=== PATIENT | female | born 1970 | race Caucasian/White ===

== ENCOUNTER 2021-02-16 06:27 | Emergency (ER) | payer SELFPAY ==
[2021-02-16 06:28] VITALS: PULSE 130; O2SAT 97; BMI 30.7
[2021-02-16 06:34] VITALS: BP 131/80; PULSE 119; RESP 20; O2SAT 97
[2021-02-16 07:01] VITALS: BP 114/80; PULSE 105; RESP 18; TEMP 36.6; O2SAT 98
--- NOTE | 2021-02-16 07:26 | ED.ALLEREA ---
HPI - Allergic Reaction General Chief complaint: Allergic Reaction Stated complaint: Allergic Reaction Time Seen by Provider: 02/16/21 07:13 Source: patient Mode of arrival: ambulatory Limitations: no limitations History of Present Illness HPI narrative: 50-year-old female who presents emergency department for evaluation of allergic reaction. The patient states that she has multiple allergies to foods including peanuts, wheat, eggs and beef. She woke up at 3:30 a.m. and ate a deltoid: She is without any reaction. She woke up this morning at 5:30 a.m. and noted facial swelling, throat itchiness and sensation that something was stuck in her throat. She took Benadryl with some improvement of her symptoms. She also states that her skin was very itchy and she noticed a rash on the backs of her hands. At the time of evaluation, she states that she has no tongue lip swelling or difficulty swallowing. She also denied shortness of breath dyspnea on exertion, nausea, lightheadedness, dizziness. Related Data Previous Rx's Medication Instructions Recorded prednisone 20 mg tablet 60 mg PO DAILY 5 Days #15 tab 02/16/21 Allergies Allergy/AdvReac Type Severity Reaction Status Date / Time peanut [PEANUT] Allergy Severe ANAPHYLAXIS Unverified 02/16/21 06:35 cephalexin [From KEFLEX] Allergy Intermediate SOB, BP Unverified 02/16/21 06:35 CHANGES wheat [WHEAT] Allergy Intermediate SOB, CP, Unverified 02/16/21 06:35 RASH Penicillins [PENICILLINS] Allergy Unknown UNK Unverified 02/16/21 06:35 Beef Containing Products Allergy Unknown Verified 02/16/21 06:35 egg Allergy Unknown Verified 02/16/21 06:35 erythromycin base AdvReac Intermediate VOMITING Unverified 02/16/21 06:35 [ERYTHROMYCIN BASE] Review of Systems Review of Systems: Yes all other systems are reviewed and are negative [facility] Past Medical History [facility] Narrative: Past medical history: Hypertension, asthma, hypothyroidism, multiple allergies to antibiotics and foods. Past surgical history: , right arm orthopedic surgery. Social history: The patient denies tobacco use, she states she was a former smoker but quit many years prior. She occasionally drinks alcohol. She denies drug use. Social History Social History Smoked in Last 30 Days: No Use of substances other than those prescribed or required for medical reasons: No Advance Directives: No Advance Directives Information Provided: No Physical Exam Vital Signs: Vital Signs: Last Vital Signs Temp 97.9 F 02/16/21 07:01 Pulse 105 H 02/16/21 07:01 Resp 18 02/16/21 07:01 BP 114/80 02/16/21 07:01 Pulse Ox 98 02/16/21 07:01 Body Mass Index 30.7 Const: General: cooperative and no acute distress Orientation/consciousness: oriented to person and oriented to place Limitations: no limitations HENMT: Head: Yes normal to inspection, Yes normocephalic and Yes atraumatic Ears: external ears normal General nose exam: Normal external nose present Face and sinus: Yes normal facial exam Mouth: Normal oral and palatal mucosa present Throat: Yes posterior oropharynx normal Eyes: General: appearance normal, both eyes and all related structures Pupils: Equal, round and reactive pupils present Neck: Neck: Yes normal visual inspection, Yes no lymphadenopathy, Yes trachea midline and Yes supple Chest: Chest palpation & inspection: normal inspection of the chest and normal palpation of entire chest wall Resp: Effort & Inspection: normal respiratory effort and able to speak in complete sentences Auscultation: clear to auscultation bilaterally Cardio: Rate: regular rate Rhythm: regular rhythm Heart sounds: S1 normal heart sound present, S2 normal heart sound present and no murmurs GI: Inspection: Yes normal to inspection Palpation (GI): Soft to palpation, nontender and no guarding Auscultation: normal bowel sounds : General: Yes no CVA tenderness Back/Spine/Pelvis: Back: no CVA tenderness Skin: General skin exam: no rashes or lesions noted Neuro: General: oriented to person and oriented to place Cranial nerves: Yes CN's II-XII intact bilaterally and Yes Equal, round and reactive pupils present Cognition (Neuro): normal cognition Motor exam (neuro): 5/5 motor strength present throughout Extrem: General: Yes normal to inspection Psych: Appearance: grossly normal Speech and movement: Normal speech and movement present Affect: normal affect Attitude: cooperative Thought process: Normal thought process present Thought content: Normal thought content present Course Course Course Narrative: 50-year-old female with multiple drug and food allergies who presents emergency department for evaluation of facial swelling, throat in the sinus and the sensation that something is stuck in her throat. She also has a rash on her hands. The patient's presentation is consistent with an allergic reaction to an unknown allergen. The patient did get some improvement after taking Benadryl at home. The patient does not need a shot of after Afrin at this time, she was treated with prednisone 60 mg orally. She was given a prescription for prednisone 60 mg once a day for 5 days. She was advised to take a long-acting antihistamine for the next 4-5 days and take Benadryl as needed for itchiness. She was given verbal and printed instructions and discharged home. Discharge Plan Discharge Clinical Impression: Allergic reaction Qualifiers: Encounter type: initial encounter Qualified Code(s): T78.40XA - Allergy, unspecified, initial encounter Patient Disposition: Home, Self-Care Instructions: Allergies (ED) Additional Instructions: Your presentation is consistent with an allergic reaction. At this time I do not think that you need a shot of epinephrine Your given prednisone 60 mg orally. I am prescribing prednisone 20 mg pills, 3 pills once a day for 5 days, take your next dose tomorrow morning. Take a long-acting antihistamine such as Claritin or Zyrtec as directed on the bottle for the next 5 days as well. For itchiness you can also take Benadryl 25 mg 1 pill every 4-6 hours. This medication will make you sleepy. Follow-up with your doctor in 2 days. Please return to the emergency department if your symptoms get worse or if you develop any symptoms that are concerning to you. Prescriptions: New prednisone 20 mg tablet 60 mg PO DAILY 5 Days Qty: 15 RF: 0
[2021-02-16] MEDS: predniSONE 20 MG TABLET 60 MG PO (07:31)
== END 2021-02-16 07:40 | disposition home or self-care (01) ==
PROVIDERS: Emergency Provider Emergency Medicine Emergency Medical Services
DX: T78.1XXA Other adverse food reactions, not elsewhere classified, initial encounter (principal); R09.89 Other specified symptoms and signs involving the circulatory and respiratory systems; R22.0 Localized swelling, mass and lump, head; L27.2 Dermatitis due to ingested food; X58.XXXA Exposure to other specified factors, initial encounter; Z79.899 Other long term (current) drug therapy
CPT/HCPCS: 99283; 99284